=== PATIENT | female | born 1975 | race American Indian/Alaskan Native ===

== ENCOUNTER 2024-08-20 17:47 | Emergency (ER) | payer BC ==
[~2024-08-20] VITALS: Ht 162.6 cm; Wt 98.8 kg
[2024-08-20] MEDS ORDERED: LISINOPRIL20 MG PO (17:56)
[2024-08-20] MEDS ORDERED: OZEMPIC0.25 MG/02 SQ (17:57)
[2024-08-20] MEDS ORDERED: ROSUVASTATIN CA20 MG (17:57)
[2024-08-20] MEDS ORDERED: METFORMIN HCL500 M1 PO (17:57)
[2024-08-20] MEDS ORDERED: LO-DOSE ASPIRIN81 MG PO (17:58)
[2024-08-20] MEDS ORDERED: NITROGLYCERIN 0.4 MG SUBL SL PRN (18:30)
[2024-08-20] MEDS ORDERED: ASPIRIN 81 MG CHEW PO ONE (18:30)
[2024-08-20] MEDS ORDERED: KETOROLAC TROMETHAMINE 30 MG/ML VIAL IV ONE (18:30)
[2024-08-20 19:00] LABS: BASOPHILS 0.3 % (0-2); EOSINOPHILS 2.4 % (0-6); HEMATOCRIT 41.1 % (35.0-50.0); HEMOGLOBIN 14.4 g/dL (12.0-18.0); LYMPHOCYTES 17.8 % (24-44); MCH 33.5 (27-36); MCV 95.6 fl (81-99); MONOCYTES 7.4 % (0-12); NEUTROPHILS 72.1 % (39-80); PLATELET COUNT 150 K/uL (140-440)
[2024-08-20 19:18] LABS: ALBUMIN 3.7 g/dL (3.4-5.0); ALBUMIN/GLOBULIN RATIO 0.93 (1.1-2.4); ANION GAP 12.5 (7-21); BUN/CREATININE RATIO 6.15 (6.0-28.6); CALCIUM 8.9 mg/dL (8.5-10.1); CREATININE, SERUM 0.65 mg/dL (0.55-1.02); POTASSIUM 3.5 mmol/L (3.5-5.1); PROTEIN, TOTAL 7.7 g/dL (6.4-8.2)
[2024-08-20 19:50] LABS: INR 1.1 (0.80-1.30); PROTIME 13.8 Sec (11.2-14.2)
[2024-08-20] MEDS ORDERED: SODIUM CHLORIDE 0.9% 1,000 ML IV PRN (20:30)
[2024-08-20] MEDS ORDERED: NITROGLYCERIN PACKET TOP ONE (20:30)
[2024-08-20 20:40] LABS: BILIRUBIN, URINE POSITIVE (negative); BLOOD/HGB, URINE NEGATIVE (Negative); KETONE, URINE NEGATIVE (Negative); LEUK ESTERASE, URINE NEGATIVE (negative); NITRITE, URINE NEGATIVE (negative)
[2024-08-20 20:48] LABS: BACTERIA, URINE NONE SEEN /hpf (negative); CASTS, URINE NONE SEEN \\lpf; COLLECTION TYPE, URINE CLEAN CATCH; CRYSTALS, URINE NONE SEEN (0-1+); EPITHELIAL CELLS, URINE SQUAMOUS 3+ /lpf (0-1+); REFLEX CULTURE, URINE No (No); WHITE BLOOD CELLS, URINE 0-1 /HPF (0-5)
[2024-08-20 20:49] LABS: PREGNANCY TEST, URINE NEGATIVE (NEG)
[2024-08-20 20:57] LABS: AMPHETAMINES, URINE NEGATIVE (NEGATIVE); BARBITURATES, URINE NEGATIVE (NEGATIVE); BENZODIAZEPINE, URINE NEGATIVE (NEGATIVE); BUPRENORPHINE, URINE NEGATIVE (NEGATIVE); CANNABINOID, URINE POSITIVE (NEGATIVE); COCAINE, URINE NEGATIVE (NEGATIVE); ECSTASY, URINE NEGATIVE (NEGATIVE); FENTANYL, URINE NEGATIVE (NEGATIVE); METHADONE, URINE NEGATIVE (NEGATIVE); OPIATES, URINE NEGATIVE (NEGATIVE); OXYCODONE, URINE NEGATIVE (NEGATIVE); PHENCYCLIDINE, URINE NEGATIVE (NEGATIVE)
[2024-08-20 21:21] LABS: INFLUENZA B NAA NEGATIVE (NEGATIVE); RESPIRATORY SYNCYTIAL VIR NAA NEGATIVE (NEGATIVE)
--- NOTE | 2024-08-20 21:54 | EKG ---
[facility] [address] [facility] [place] [address] Signed Normal sinus rhythm Inferior infarct , age undetermined Abnormal ECG No previous ECGs available Confirmed by Roshan Bermudez MD () on 08/20/2024 9:53:57 PM Electronically Signed By: ROSHAN BERMUDEZ MD [id number] PATIENT NAME: CASECARLOS Electrocardiogram DATE OF : 75 PHYSICIAN: ROSHAN BERMUDEZ MD REPORT #: [id number] REPORT IS CONFIDENTIAL AND NOT TO BE RELEASED WITHOUT AUTHORIZATION
[2024-08-20] MEDS ORDERED: OMEPRAZOLE20 MG PO (22:18)
[2024-08-20] MEDS ORDERED: CYCLOBENZAPRINE10 MG PO (22:18)
[2024-08-20 22:40] VITALS: BP 118/73
== END 2024-08-20 22:43 | disposition home or self-care (01) ==
LOC: ED 17:47
PROVIDERS: Emergency Medicine; Family Medicine
DX: R07.89 Other chest pain (principal); R10.13 Epigastric pain; E11.9 Type 2 diabetes mellitus without complications; Z88.0 Allergy status to penicillin; Z79.84 Long term (current) use of oral hypoglycemic drugs; Z79.899 Other long term (current) drug therapy
CPT/HCPCS: 36415; 71045; 80053; 80307; 81001; 83690; 83735; 83880; 84484; 84703; 85025; 85379; 85610; 87502; 93005; 93010; 96374; 99285-25; A9270; J1885; J7030; U0002